=== PATIENT | female | born 1955 | race Caucasian/White ===

== ENCOUNTER 2018-04-09 11:05 | Emergency (ER) | payer BC ==
--- NOTE | 2018-04-09 12:43 | RAD ---
3 VIEW LEFT ANKLE: Date: 04/09/18 INDICATION: Edema. FINDINGS: There is no fracture or dislocation. Mortise is intact. Soft tissue prominence preferentially involve s the lateral aspect of the left ankle. IMPRESSION: 1. Soft tissue prominence of the lateral left ankle. Correlate clinically. 2. No underlying, acute fracture. POS: [facility]
--- NOTE | 2018-04-09 12:45 | RAD ---
3 VIEW LEFT FOOT: Date: 04/09/18 INDICATION: Pain. FINDINGS: There are multiple radiopaque densities overlying the distal left foot with underlying chronic appear ing osseous deformity of the distal second and third metatarsals. This suggests sequelae from prior i njury with retained radiopaque foreign bodies. There is no acute osseous abnormality visualized. Dors al calcaneal enthesophyte is present. IMPRESSION: Chronic appearing post-traumatic deformity of the distal second and third metatarsals with adjacent e mbedded radiopaque foreign bodies to indicate prior penetrating injury. Correlate with history. POS: [facility]
== END 2018-04-09 12:58 | disposition home or self-care (01) ==
LOC: SCSER 11:05
DX: S93.402A Sprain of unspecified ligament of left ankle, initial encounter (principal); S86.312A Strain of muscle(s) and tendon(s) of peroneal muscle group at lower leg level, left leg, initial encounter; I10 Essential (primary) hypertension; E78.00 Pure hypercholesterolemia, unspecified; Z79.899 Other long term (current) drug therapy; W54.1XXA Struck by dog, initial encounter

== ENCOUNTER 2019-02-12 20:16 | Emergency (ER) | payer BC ==
[2019-02-12 21:03] LABS: #Eosinphils 0.2 thou/uL (0.0-0.7); #Lymphocytes 2.9 thou/uL (1.20-3.40); #Monocytes 0.4 thou/uL (0.11-0.59); %Basophils 0.2 % (0.0-1.0); %Eosinophils 2.1 % (0.0-10.0); %Lymphocytes 38.3 % (21.0-51.0); %Monocytes 5.5 % (0.0-10.0); %Neutrophils 53.9 % (42.0-75.0); Mean Corpuscular HGB CONC 35.5 g/dL (32.0-36.0); Mean Corpuscular Hemoglobin 31.5 pg (27.0-31.0); Mean Corpuscular Volume 88.6 fL (78.0-98.0); Platelet Count 268 thou/uL (130-400); RBC Distribution Width 11.9 % (11.5-14.5); Red Blood Cell (RBC) Count 4.45 mill/uL (4.20-5.40); White Blood Cell (WBC) Count 7.5 thou/uL (4.8-10.8)
--- NOTE | 2019-02-12 21:23 | RAD ---
RADIOGRAPH CHEST 1 VIEW: DATE: 02/12/2019 HISTORY: 63-year-old female with hypotension and generalized weakness FINDINGS: The cardiothymic silhouette is normal. There are no focal airspace densities. IMPRESSION: No evidence of bacterial pneumonia.
[2019-02-12 21:24] LABS: ALT (SGPT) 16 U/L (8-55); AST (SGOT) 18 U/L (5-34); Albumin 4.3 g/dL (3.4-4.8); Alkaline Phosphatase 126 U/L (40-150); Anion Gap 16 mmol/L (10-20); BUN (Urea Nitrogen) 28 mg/dL (9.8-20.1); Bilirubin, Total 0.2 mg/dL (0.2-1.2); Calc. Creatinine Clearance 0 mL/min (70-130); Calcium 9.9 mg/dL (7.8-10.44); Carbon Dioxide 19 mmol/L (23-31); Chloride 104 mmol/L (98-107); Estimated GFR-MDRD 37; Globulin 3.1 g/dL (2.4-3.5); Glucose 95 mg/dL (80-115); Potassium 4.3 mmol/L (3.5-5.1); Protein, Total 7.4 g/dL (6.0-8.3); Sodium 135 mmol/L (136-145)
--- NOTE | 2019-02-12 22:23 | CT ---
CT BRAIN NONCONTRAST: DATE: 02/12/2019 HISTORY: Generalized weakness and hypotension in 63-year-old female FINDINGS: There is no evidence of acute intra-axial or extra-axial hemorrhage. There is no midline shift or any other mass effect. There is no extra-axial fluid collection. The ventricles are normal in size and configuration. The tympanomastoid cavities, and the upper portions of the paranasal sinuses included in these images, are grossly clear. Calvarium is intact. IMPRESSION: Normal.
[2019-02-12 23:00] LABS: Bilirubin Small (Negative); Blood, Urine Negative (Negative); Glucose, Urine (Dipstick) Negative (Negative); Leukocyte Small (Negative); Nitrite Negative (Negative); Protein, Urine (Dipstick) 30 mg/dL (Neg-Trace); Urobilinogen 0.2 mg/dL (Less than 2)
[2019-02-12 23:03] LABS: Clarity Turbid (Clear)
[2019-02-12 23:08] LABS: Bacteria/HPF 4+ HPF (None Seen); RBC/HPF 0-3 HPF (0-3)
[2019-02-12] MEDS ORDERED: cefTRIAXone\\ROCEPHIN 1 GM VIAL ONE (23:23)
== END 2019-02-13 00:02 | disposition home or self-care (01) ==
LOC: ERS 20:16
DX: N39.0 Urinary tract infection, site not specified (principal); I95.9 Hypotension, unspecified; I10 Essential (primary) hypertension; E78.00 Pure hypercholesterolemia, unspecified; Z79.899 Other long term (current) drug therapy
CPT/HCPCS: 36416; 70450; 71045; 80053; 81003; 81015; 84484; 85025; 87086; 93005; 96361; 96365; J0696

== ENCOUNTER 2019-02-22 10:22 | Outpatient (CLI) | payer BC ==
--- NOTE | 2019-02-22 11:09 | MMO ---
Right Breast MAMMO Unilat Diag DDI RT+ASTON. CLINICAL HISTORY: Patient is 63 years old and is seen for diagnostic exam. The patient has no family history of breast cancer. The patient has no personal history of cancer. VIEWS: The views performed were: right craniocaudal spot compression with tomosynthesis; right mediolateral oblique spot compression with tomosynthesis; and right mediolateral with tomosynthesis. FILMS COMPARED: The present examination has been compared to prior imaging studies performed at [facility] on 02/02/2019 and 02/22/2019. MAMMOGRAM FINDINGS: There are scattered fibroglandular densities. There is an equal density, oval mass measuring 10 millimeters with circumscribed margins seen in the lower-inner region of the right breast. Sonographic findings suggest fibroadenoma. IMPRESSION: MASS IN THE RIGHT BREAST IS PROBABLY BENIGN. FOLLOW-UP IN 6 MONTHS IS RECOMMENDED. THE RESULTS OF THIS EXAM WERE SENT TO THE PATIENT. ACR BI-RADS Category 3 - Probably benign finding - short interval follow-up suggested. [facility] will notify the patient of the need for additional imaging services. MAMMOGRAPHY NOTE: 1. A negative mammogram report should not delay a biopsy if a dominant of clinically suspicious mass is present. 2. Approximately 10% to 15% of breast cancers are not detected by mammography. 3. Adenosis and dense breasts may obscure an underlying neoplasm. Reported by: HANSA BOWDEN MD Electonically Signed: [id number]
--- NOTE | 2019-02-22 12:56 | ULT ---
LIMITED RIGHT BREAST ULTRASOUND: 02/22/19 PROVIDED CLINICAL HISTORY: Abnormal mammogram. FINDINGS: Limited sonographic interrogation of the right breast was performed in the region of mammographic con cern. An 8 mm oval, wider than tall, smoothly marginated hypoechoic mass without associated shadowing is demonstrated at the 4 o'clock position, and corresponds to the mammogram finding. The sonographic characteristics of this process suggests fibroadenoma, though this is not completely certain. IMPRESSION: BIRADS 3: Probably Benign Finding Initial Short-Interval Follow-Up Suggested Initial short-term follow up 6-month ultrasound examination is recommended. POS: [facility]
== END 2019-02-22 10:23 | disposition home or self-care (01) ==
LOC: BICMAMMO 10:22
PROVIDERS: ATTEND Family Medicine
DX: N63.10 Unspecified lump in the right breast, unspecified quadrant (principal)
CPT/HCPCS: G0279

== ENCOUNTER 2019-04-19 12:56 | Outpatient (CLI) | payer OTHER | END 2019-04-19 12:57 | disposition home or self-care (01) | LOC: DTY/OP 12:56 | PROVIDERS: ATTEND Surgery | DX: E66.01 Morbid (severe) obesity due to excess calories (principal) | CPT/HCPCS: 97802 ==

== ENCOUNTER 2019-05-16 06:18 | Outpatient (CLI) | payer BC ==
[2019-05-16 14:58] LABS: Hemoglobin A1c 5.5 % (4.0-6.0)
[2019-05-16 15:01] LABS: Hemoglobin 13.9 g/dL (12.0-16.0); Mean Corpuscular HGB CONC 34.9 g/dL (32.0-36.0); Mean Corpuscular Hemoglobin 30.7 pg (27.0-31.0); Mean Corpuscular Volume 88.1 fL (78.0-98.0); Mean Platelet Volume 6.4 fL (7.4-10.4); Platelet Count 300 thou/uL (130-400); RBC Distribution Width 11.9 % (11.5-14.5); Red Blood Cell (RBC) Count 4.52 mill/uL (4.20-5.40); White Blood Cell (WBC) Count 8.1 thou/uL (4.8-10.8)
[2019-05-16 15:14] LABS: ALT (SGPT) 24 U/L (8-55); AST (SGOT) 19 U/L (5-34); Albumin 4.5 g/dL (3.4-4.8); Alkaline Phosphatase 115 U/L (40-110); Anion Gap 13 mmol/L (10-20); BUN (Urea Nitrogen) 26 mg/dL (9.8-20.1); Bilirubin, Direct 0.2 mg/dL (0.1-0.3); Bilirubin, Total 0.4 mg/dL (0.2-1.2); Calc. Creatinine Clearance 0 mL/min (70-130); Calcium 9.4 mg/dL (7.8-10.44); Carbon Dioxide 24 mmol/L (23-31); Chloride 103 mmol/L (98-107); Estimated GFR-MDRD 51; Globulin 2.9 g/dL (2.4-3.5); Glucose 87 mg/dL (80-115); Potassium 4.5 mmol/L (3.5-5.1); Protein, Total 7.4 g/dL (6.0-8.3); Sodium 135 mmol/L (136-145)
[2019-05-16 16:22] LABS: Band 7 % (5-11); Eosinophils 2 % (0-10); Lymphocytes 25 % (21-51); MDiff Complete? YES; Monocytes 5 % (0-10); Neutrophil 54 % (42-75); Platelet Morphology Comment Appears Adequate; RBC Morphology Normal; Reactive Lymphocytes 6 % (0-10)
--- NOTE | 2019-05-16 22:50 | RAD ---
EXAM: Chest 2 views: HISTORY: Preoperative for surgical evaluation COMPARISON: 02/12/2019 FINDINGS: Heart size:Within normal limits. Lungs:Clear of acute process. Atherosclerotic changes of the aorta. No confluent pneumonia, overt edema, pleural effusion, pneumothorax, or other significant acute proce ss. IMPRESSION: Atherosclerosis of the aorta. No acute intrathoracic disease.
== END 2019-05-16 06:19 | disposition home or self-care (01) ==
LOC: LABBT 06:18
PROVIDERS: ATTEND Surgery
DX: Z01.818 Encounter for other preprocedural examination (principal); E66.01 Morbid (severe) obesity due to excess calories; I70.0 Atherosclerosis of aorta
CPT/HCPCS: 71046; 80053; 80076; 83036; 85007; 85027; 93005; 93010

== ENCOUNTER 2019-05-16 17:00 | Inpatient (IN) | payer BC, MEDICARE ==
[2019-05-29] MEDS ORDERED: Heparin 5,000 UNITS/ML VIAL ONE (10:02)
[2019-05-29] MEDS ORDERED: Bupivacaine PF 0.5% 30 ML VIAL ONE (10:10)
[2019-05-29] MEDS ORDERED: Promethazine HCl 25 MG/ML VIAL IM PRN ×3 (10:48→14:26)
[2019-05-29] MEDS ORDERED: Ondansetron HCl/PF 4 MG/2 ML Vial IVP PRN ×2 (10:48→13:17)
[2019-05-29] MEDS ORDERED: Promethazine HCl 25 MG/ML VIAL SLOW IVP PRN ×2 (10:48→13:17)
[2019-05-29] MEDS ORDERED: Fentanyl 100 MCG/2 ML VIAL ONE ×3 (11:18→14:38)
[2019-05-29] MEDS ORDERED: Midazolam HCl 2 mg/2 ml Vial ONE ×2 (11:18→11:19)
[2019-05-29] MEDS ORDERED: Dextrose 50% Abboject 50 ML SYRINGE SLOW IVP PRN (13:40)
[2019-05-29] MEDS ORDERED: hydrALAZINE 20 MG/ML VIAL SLOW IVP PRN (13:40)
[2019-05-29] MEDS ORDERED: Insulin Regular 300 UNITS/3 ML VIAL SC PRN (13:40)
[2019-05-29] MEDS ORDERED: diphenhydrAMINE 50 MG/ML VIAL IVP PRN ×2 (13:40→14:26)
[2019-05-29] MEDS ORDERED: Ondansetron PF 4 MG/2 ML Vial IVP PRN ×2 (13:40→14:26)
[2019-05-29] MEDS ORDERED: Dextrose 5% in Water 1,000 ML IV PRN (13:40)
[2019-05-29] MEDS ORDERED: Hydrocodone-Acetamin 15 ML UDCUP PO PRN (13:40)
[2019-05-29] MEDS ORDERED: Sodium Chloride 0.9% 1,000 ML IV SCH (13:45)
[2019-05-29] MEDS ORDERED: Zolpidem Tartrate 5 MG TAB PO PRN (14:26)
[2019-05-29] MEDS ORDERED: fentaNYL Citrate/PF 2,000 MCG in Sodium Chloride 0.9% 60 ML IV PRN (14:26)
[2019-05-29] MEDS ORDERED: Naloxone HCl 0.4 mg/ml Vial IV PRN (14:26)
[2019-05-29] MEDS ORDERED: diphenhydrAMINE 50 MG/ML VIAL IM PRN (14:26)
[2019-05-29] MEDS ORDERED: diphenhydrAMINE 25 MG CAP PO PRN (14:26)
[2019-05-29] MEDS ORDERED: Communication Order-Pharmacy FS SCH (14:30)
[2019-05-29] MEDS ORDERED: Rocuronium Bromide 10 MG/ML (10ML VIAL) ONE (14:49)
[2019-05-29] MEDS ORDERED: PROPOFOL 200 MG/20 ML VIAL ONE (14:49)
[2019-05-29] MEDS ORDERED: Dexamethasone 20 MG/5 ML VIAL ONE (14:49)
[2019-05-29] MEDS ORDERED: Lidocaine 1% PF 5 ML VIAL ONE (14:49)
[2019-05-29] MEDS ORDERED: Glycopyrrolate 0.2 MG/ML 5 ML SYRINGE ONE (14:49)
[2019-05-29] MEDS ORDERED: Ketorolac Tromethamine 30 MG/ML VIAL ONE (14:49)
[2019-05-29] MEDS ORDERED: Ondansetron PF 4 MG/2 ML Vial ONE (14:49)
[2019-05-29] MEDS ORDERED: hydrALAZINE 20 MG/ML VIAL ONE (15:55)
--- NOTE | 2019-05-29 17:03 | OP ---
DATE OF PROCEDURE: 05/29/2019 PREOPERATIVE DIAGNOSES: 1. Morbid obesity with a body mass index of 38. 2. Hypertension. POSTOPERATIVE DIAGNOSES: 1. Morbid obesity with a body mass index of 38. 2. Hypertension. 3. Hiatal hernia. PROCEDURES PERFORMED: 1. Laparoscopic sleeve gastrectomy with [place] staple line reinforcements and 38-[place] bougie. 2. Hiatal hernia repair without fundoplication. 3. Esophagogastroduodenoscopy. ANESTHESIA: General. ESTIMATED BLOOD LOSS: Minimal. COMPLICATIONS: None. SPECIMENS: Stomach. FINDINGS: Normal postoperative EGD. DESCRIPTION OF PROCEDURE: The patient was taken to the operating room, placed supine on the table. After general anesthetic was obtained, bilateral arms and legs were double strapped to bariatric table. OG tube was used to decompress the stomach. Left subcostal 5 mm Optiview trocar was placed in usual fashion. High-flow pneumoperitoneum obtained. Left and right abdominal 12 mm ports as well as a right subcostal 5 mm port were all placed under direct visualization. A 5 mm incision was made at the xiphoid and Lakisha was used to raise the liver off the GE junction. Short gastrics were taken down from mid body of stomach to left clemente of diaphragm. Left clemente, angle of His, and posterior fundus were completely dissected revealing a hiatal hernia. Short gastrics were taken down to a distance of 6 cm proximal to the pylorus. The gastrohepatic ligament was entered. The right crura of the diaphragm were dissected and the mediastinum was entered. A circumferential dissection of the esophagus was performed, bringing the GE junction back down into the abdominal cavity. A 38 bougie was brought in, its tip left in the antrum of the stomach. Multiple loads of the [place] stapling device were used to perform the sleeve. The first was fired up at a distance of 6 cm proximal to the pylorus, angled up towards the incisura. Multiple loads then fired up along the bougie. Stomach was completely transected at the angle of His. Care was taken to avoid being too close at the end of incisura. Two Ethibond sutures and a tie knot system were used to close the diaphragmatic defect posteriorly. The stomach was removed from the left abdominal incision. This fascial defect was closed using GraNee needle 0 Vicryl tie. A 30 mL of half Marcaine plain was used to infiltrate the incisions. EGD scope was passed through esophagus, stomach, and to the level of duodenum without obstruction. There was no stricture at the incisura. No evidence of stenosis at the GE junction or at the diaphragmatic hiatus. EGD scope was pulled and the stomach was decompressed and EGD scope was removed. Lakisha removed under direct visualization without bleeding. Pneumoperitoneum was let down. Vicryl was used to close the fascial defect from the left abdominal incisions. All incisions were irrigated and closed using 4-0 Monocryl and Dermabond. The patient was en route to Recovery in stable condition. All instrument counts, needle counts, and lap counts were correct. Job ID: [id number]
[2019-05-29 17:25] VITALS: BMI 35.3
[2019-05-29] MEDS: Acetaminophen 1,000 MG in Premix Bag 1 BAG IVPB SCH ×2 (18:03→23:35)
[2019-05-29] MEDS ORDERED: Enoxaparin Sodium 40 MG/0.4 ML SYRINGE SC SCH (21:00)
[2019-05-29] MEDS ORDERED: Gabapentin 300 MG CAP PO SCH (21:00)
[2019-05-29] MEDS ORDERED: traZODone HCl 50 MG TAB PO SCH (21:00)
[2019-05-29] MEDS: Promethazine HCl 25 MG/ML VIAL IM PRN (21:24)
[2019-05-29] MEDS: D5 1/2 NS w/20 mEq KCL 1,000 ML IV SCH (21:26)
[2019-05-29] MEDS: Metoprolol Tartrate 50 MG TAB PO SCH (21:27)
[2019-05-29] MEDS: Gabapentin 300 MG CAP PO SCH ×2 (21:27→22:07)
[2019-05-30] MEDS: Promethazine HCl 25 MG/ML VIAL IM PRN ×2 (00:10→04:16)
[2019-05-30] MEDS: Acetaminophen 1,000 MG in Premix Bag 1 BAG IVPB SCH ×2 (05:27→12:48)
[2019-05-30] MEDS: D5 1/2 NS w/20 mEq KCL 1,000 ML IV SCH (05:27)
[2019-05-30] MEDS: Metoprolol Tartrate 50 MG TAB PO SCH (08:33)
[2019-05-30] MEDS: Gabapentin 300 MG CAP PO SCH (08:33)
[2019-05-30] MEDS ORDERED: Amlodipine 10 MG TAB PO SCH (09:00)
[2019-05-30] MEDS ORDERED: LURASIDONE 40 MG PO SCH (09:00)
[2019-05-30] MEDS ORDERED: Lisinopril 20 MG TAB PO SCH (09:00)
[2019-05-30] MEDS ORDERED: Pantoprazole 40 MG VIAL IVP SCH (09:00)
[2019-05-30] MEDS ORDERED: Venlafaxine HCl XR 150 MG CAP PO SCH (09:00)
[2019-05-30] MEDS ORDERED: Hydrocodone-Acetamin 15 ML UDCUP PO PRN (10:10)
[2019-05-30 10:47] LABS: #Lymphocytes 2.4 thou/uL (1.20-3.40); #Monocytes 0.6 thou/uL (0.11-0.59); #Neutrophils 7.4 thou/uL (1.40-6.50); %Basophils 0.1 % (0.0-1.0); %Eosinophils 0.3 % (0.0-10.0); %Lymphocytes 22.9 % (21.0-51.0); %Monocytes 5.3 % (0.0-10.0); %Neutrophils 71.4 % (42.0-75.0); Hemoglobin 13.6 g/dL (12.0-16.0); Mean Corpuscular HGB CONC 33.6 g/dL (32.0-36.0); Mean Corpuscular Hemoglobin 29.9 pg (27.0-31.0); Mean Corpuscular Volume 89.1 fL (78.0-98.0); Mean Platelet Volume 7.1 fL (7.4-10.4); Platelet Count 312 thou/uL (130-400); RBC Distribution Width 12.1 % (11.5-14.5); Red Blood Cell (RBC) Count 4.56 mill/uL (4.20-5.40); White Blood Cell (WBC) Count 10.4 thou/uL (4.8-10.8)
[2019-05-30 10:56] LABS: Anion Gap 13 mmol/L (10-20); BUN (Urea Nitrogen) 9 mg/dL (9.8-20.1); Calc. Creatinine Clearance 88 mL/min (70-130); Carbon Dioxide 26 mmol/L (23-31); Chloride 102 mmol/L (98-107); Estimated GFR-MDRD 54; Glucose 113 mg/dL (80-115); Potassium 3.5 mmol/L (3.5-5.1); Sodium 137 mmol/L (136-145)
[2019-05-30 11:23] VITALS: BP 149/86; TEMP 98.5
--- NOTE | 2019-06-01 05:51 | PQF ---
[facility] Managed Care Provider Crystal Reports Winform LOUISA Baugh BEL CARRILLO MD [id number] [facility] A- [id number] CLINICAL DOCUMENTATION CLARIFICATION FORM: POST DISCHARGE Addendum to original discharge summary date: ____ Late entry note date: __ DATE: 06/01/2019 ATTN:BEL ERVIN MD Please exercise your independent, professional judgment in responding to the clarification form. Clinical indicators are provided on the bottom of this form for your review Please check appropriate box(s): Kindly provide clinical significance of cardiomyopathy [ ] Cardiomyopathy was clinically significant [ x ] Cardiomyopathy was not clinically significant [ ] Other diagnosis [ ] Unable to determine In addition, please specify: Present on Admission (POA): [ ] Yes [ ] No [ ] Unable to determine For continuity of documentation, please document condition throughout progress notes and discharge summary. Thank You. CLINICAL INDICATORS - SIGNS / SYMPTOMS / LABS Cardiomyopathy diastolic dysfunction on ECHO EF 55-60% MR TR - Documented in [facility] Pre op report pg#2 HTN RISK FACTORS Morbid obesity Hiatal Hernia TREATMENTS: Laparoscopic Sleeve gastrectomy has done (This form is maintained as a part of the permanent medical record) 2014 [employer]. All Rights Reserved Harini [email or web address] [not provided] MTDD
== END 2019-05-30 13:50 | disposition home or self-care (01) | DRG 621 ==
LOC: SURG A 05-29 09:25
PROVIDERS: ADMIT Surgery; ATTEND Surgery
PROC: 0DB64Z3 Excision of Stomach, Percutaneous Endoscopic Approach, Vertical (ICD-10-PCS; principal; 2019-05-29)
PROC: 0BQT4ZZ Repair Diaphragm, Percutaneous Endoscopic Approach (ICD-10-PCS; 2019-05-29)
PROC: 0DJ08ZZ Inspection of Upper Intestinal Tract, Via Natural or Artificial Opening Endoscopic (ICD-10-PCS; 2019-05-29)
DX: E66.01 Morbid (severe) obesity due to excess calories (principal); I10 Essential (primary) hypertension; E78.5 Hyperlipidemia, unspecified; G43.909 Migraine, unspecified, not intractable, without status migrainosus; F32.9 Major depressive disorder, single episode, unspecified; F41.9 Anxiety disorder, unspecified; Z68.35 Body mass index [BMI] 35.0-35.9, adult; Z90.710 Acquired absence of both cervix and uterus; Z90.49 Acquired absence of other specified parts of digestive tract; Z87.891 Personal history of nicotine dependence; K44.9 Diaphragmatic hernia without obstruction or gangrene
CPT/HCPCS: 36415; 80048; 85025; 88307; 88312; C9113; J0131; J0360; J0690; J1100; J1644; J1650; J1885; J2001; J2250; J2405; J2550; J2704; J3010; S0020

== ENCOUNTER 2019-06-08 13:01 | Observation (INO) | payer BC, MEDICARE ==
[2019-06-08] MEDS ORDERED: Iopamidol-370 76% 500 ML 1 ML ONE (13:27)
[2019-06-08] MEDS ORDERED: Ondansetron PF 4 MG/2 ML Vial ONE ×2 (14:12→15:34)
[2019-06-08 14:47] LABS: #Lymphocytes 1.1 thou/uL (1.20-3.40); #Monocytes 0.3 thou/uL (0.11-0.59); #Neutrophils 5.1 thou/uL (1.40-6.50); %Basophils 0.6 % (0.0-1.0); %Eosinophils 0.6 % (0.0-10.0); %Lymphocytes 16.2 % (21.0-51.0); %Monocytes 4.7 % (0.0-10.0); %Neutrophils 77.9 % (42.0-75.0); Mean Corpuscular HGB CONC 34.6 g/dL (32.0-36.0); Mean Corpuscular Hemoglobin 30.7 pg (27.0-31.0); Mean Corpuscular Volume 88.6 fL (78.0-98.0); Mean Platelet Volume 6.6 fL (7.4-10.4); Platelet Count 317 thou/uL (130-400); RBC Distribution Width 11.8 % (11.5-14.5); Red Blood Cell (RBC) Count 4.23 mill/uL (4.20-5.40); White Blood Cell (WBC) Count 6.5 thou/uL (4.8-10.8)
[2019-06-08 15:17] LABS: ALT (SGPT) 37 U/L (8-55); AST (SGOT) 27 U/L (5-34); Albumin 4.5 g/dL (3.4-4.8); Alkaline Phosphatase 116 U/L (40-110); Anion Gap 15 mmol/L (10-20); BUN (Urea Nitrogen) 10 mg/dL (9.8-20.1); Bilirubin, Total 0.6 mg/dL (0.2-1.2); Calc. Creatinine Clearance 0 mL/min (70-130); Calcium 9.8 mg/dL (7.8-10.44); Carbon Dioxide 28 mmol/L (23-31); Chloride 101 mmol/L (98-107); Estimated GFR-MDRD 49; Globulin 3.3 g/dL (2.4-3.5); Glucose 114 mg/dL (80-115); Potassium 3.8 mmol/L (3.5-5.1); Protein, Total 7.8 g/dL (6.0-8.3); Sodium 140 mmol/L (136-145)
[2019-06-08] MEDS ORDERED: Fentanyl 100 MCG/2 ML VIAL ONE (15:44)
[2019-06-08] MEDS ORDERED: Promethazine HCl 25 MG/ML VIAL ONE (16:10)
[2019-06-08 16:11] LABS: Bilirubin Negative (Negative); Blood, Urine Negative (Negative); Clarity Clear (Clear); Glucose, Urine (Dipstick) Normal (Negative); Leukocyte Negative Leu/uL (Negative); Nitrite Negative (Negative); Protein, Urine (Dipstick) 20 mg/dL (Neg-Trace); Urobilinogen Normal mg/dL (Less than 2)
--- NOTE | 2019-06-08 17:06 | CT ---
CT ABDOMEN AND PELVIS WITH IV CONTRAST: 06/08/19 HISTORY: Abdominal pain. Recent gastric sleeve surgery on 05/29/19. FINDINGS: There are mild dependent changes in the left lung base. The patient is post gastric sleeve surgery, cholecystectomy and hysterectomy. The intra and extrahepatic biliary ducts are dilated with the commo n bile duct measuring about 1 cm. No hepatic mass is seen. The spleen, pancreas, left adrenal gland a nd right kidney are normal. There is an 8 mm cyst arising from the superior pole of the left kidney. No free air, free fluid or lymphadenopathy is seen in the abdomen or pelvis. The small bowel loops a re not abnormally dilated. The appendix is normal. There is a 15 mm right adrenal nodule which has not been calculated for adenoma. There are vascular calcifications without evidence of aneurysmal dilatation of the abdominal aorta. T here are degenerative changes in the spine. There is induration of the anterior abdominal fat likely due to recent surgery. IMPRESSION: 1. No acute process. 2. Status post cholecystectomy with biliary ductal dilatation likely due to reservoir effect. 3. Indeterminate 15 mm right adrenal nodule. A CT scan with and without IV contrast using the ad renal protocol would be helpful for further characterization. POS: [facility]
--- NOTE | 2019-06-08 17:22 | HP ---
HISTORY OF PRESENT ILLNESS: This is a 64-year-old female, who is 10 days status post gastric sleeve, who presents with a history of nausea, vomiting, and feeling tired. She also noted some chest pain. Seen in the emergency department, where CT scan shows no obvious leak. She feels better with some IV fluids. MEDICAL HISTORY: Includes hypertension. SURGICAL HISTORY: Includes; 1. Cholecystectomy. 2. Hysterectomy. 3. Bladder surgery. 4. Lap sleeve. MEDICATIONS: See list. ALLERGIES: NO KNOWN DRUG ALLERGIES. SOCIAL HISTORY: No smoking, alcohol, or other drugs. REVIEW OF SYSTEMS: Ten-system review of systems is otherwise negative other than described above. PHYSICAL EXAMINATION: HEENT: Sclerae anicteric. Oropharynx clear. NECK: No lymphadenopathy. CHEST: Clear. HEART: Regular rate and rhythm. ABDOMEN: Soft. Wounds are healing well with some bruising, but no infection. EXTREMITIES: No ischemia or edema to extremities. IMAGING STUDIES: CT scan as above. LABORATORY DATA: White blood cell count is 6.5, hemoglobin 13, and platelet count is 317. Sodium 140, potassium 3.8, and creatinine is 1.12. She has ketones in her urine. ASSESSMENT: Nausea, vomiting, and dehydration status post gastric sleeve. PLAN: Admit to observation. IV fluids. Likely, we will probably discharge tomorrow. Job ID: [id number]
[2019-06-08] MEDS ORDERED: Dextrose 50% Abboject 50 ML SYRINGE SLOW IVP PRN (18:45)
[2019-06-08] MEDS ORDERED: Ondansetron PF 4 MG/2 ML Vial IVP PRN (18:45)
[2019-06-08] MEDS ORDERED: hydrALAZINE 20 MG/ML VIAL SLOW IVP PRN (18:45)
[2019-06-08] MEDS ORDERED: diphenhydrAMINE 50 MG/ML VIAL IVP PRN (18:45)
[2019-06-08] MEDS ORDERED: Hydrocodone-Acetamin 15 ML UDCUP PO PRN (18:45)
[2019-06-08] MEDS ORDERED: Acetaminophen 1,000 MG in Premix Bag 1 BAG IVPB PRN (18:45)
[2019-06-08] MEDS ORDERED: Morphine 4 MG/ML VIAL SLOW IVP PRN (18:45)
[2019-06-08] MEDS ORDERED: Dextrose 5% in Water 1,000 ML IV PRN (18:45)
[2019-06-08] MEDS ORDERED: Morphine 2 MG/ML SYRINGE SLOW IVP PRN (18:45)
[2019-06-08] MEDS: Metoprolol Tartrate 50 MG TAB PO SCH (21:12)
[2019-06-08] MEDS: D5 1/2 NS w/20 mEq KCL 1,000 ML IV SCH (21:13)
[2019-06-09] MEDS: D5 1/2 NS w/20 mEq KCL 1,000 ML IV SCH ×2 (05:00→16:07)
[2019-06-09 05:45] LABS: #Basophils 0.1 thou/uL (0.0-0.2); #Eosinphils 0.2 thou/uL (0.0-0.7); #Lymphocytes 1.7 thou/uL (1.20-3.40); #Monocytes 0.4 thou/uL (0.11-0.59); #Neutrophils 3.5 thou/uL (1.40-6.50); %Basophils 0.9 % (0.0-1.0); %Eosinophils 2.7 % (0.0-10.0); %Lymphocytes 29.3 % (21.0-51.0); %Monocytes 6.4 % (0.0-10.0); %Neutrophils 60.7 % (42.0-75.0); Hemoglobin 11.1 g/dL (12.0-16.0); Mean Corpuscular HGB CONC 33.7 g/dL (32.0-36.0); Mean Corpuscular Hemoglobin 30.5 pg (27.0-31.0); Mean Corpuscular Volume 90.6 fL (78.0-98.0); Mean Platelet Volume 7.1 fL (7.4-10.4); Platelet Count 282 thou/uL (130-400); RBC Distribution Width 11.9 % (11.5-14.5); Red Blood Cell (RBC) Count 3.62 mill/uL (4.20-5.40); White Blood Cell (WBC) Count 5.8 thou/uL (4.8-10.8)
[2019-06-09 06:02] LABS: Anion Gap 11 mmol/L (10-20); BUN (Urea Nitrogen) 9 mg/dL (9.8-20.1); Calc. Creatinine Clearance 98 mL/min (70-130); Calcium 8.4 mg/dL (7.8-10.44); Carbon Dioxide 24 mmol/L (23-31); Chloride 107 mmol/L (98-107); Estimated GFR-MDRD 60; Glucose 135 mg/dL (80-115); Potassium 3.8 mmol/L (3.5-5.1); Sodium 138 mmol/L (136-145)
[2019-06-09] MEDS: Promethazine HCl 25 MG/ML VIAL IM PRN ×2 (08:26→11:40)
[2019-06-09] MEDS: Metoprolol Tartrate 50 MG TAB PO SCH (08:36)
[2019-06-09] MEDS ORDERED: Pantoprazole 40 MG VIAL IVP SCH (09:00)
--- NOTE | 2019-06-09 11:25 | DIS ---
DATE OF ADMISSION: 06/08/2019 DATE OF DISCHARGE: 06/09/2019 ADMITTING DIAGNOSES: Nausea, vomiting, dehydration. DISCHARGE DIAGNOSES: Nausea, vomiting, dehydration. PROCEDURE: None. CONDITION ON DISCHARGE: Improved. STAFF: Jaime Berman MD HOSPITAL COURSE: The patient was admitted with intractable vomiting, status post gastric sleeve. Her CT scan of her abdomen revealed no obvious complication from surgery. She was hydrated overnight. She feels slightly improved today. She has persistent nausea, but the Phenergan suppositories help. She is to be discharged home. Prescription for Phenergan suppositories will be sent over to her pharmacy. She will follow up with me in a week. Job ID: [id number]
[2019-06-09 12:17] VITALS: BP 137/77; TEMP 97.5
== END 2019-06-09 13:35 | disposition home or self-care (01) ==
LOC: ERS 13:01 → SURG B 16:22
PROVIDERS: ADMIT Surgery; ATTEND Surgery
DX: E86.0 Dehydration (principal); R07.9 Chest pain, unspecified; I10 Essential (primary) hypertension; E78.00 Pure hypercholesterolemia, unspecified; F41.9 Anxiety disorder, unspecified; F32.9 Major depressive disorder, single episode, unspecified; Z79.899 Other long term (current) drug therapy; Z98.84 Bariatric surgery status
CPT/HCPCS: 36415; 74177; 80048; 80053; 81003; 83690; 85025; 86850; 86900; 86901; 94760; 96361; 96372; 96374; 96375; 96376; C9113; G0378; J2405; J2550; J3010; Q9967

== ENCOUNTER 2019-07-08 10:40 | Emergency (ER) | payer BC, MEDICARE ==
[2019-07-08 11:26] LABS: #Eosinphils 0.1 thou/uL (0.0-0.7); #Lymphocytes 1.8 thou/uL (1.20-3.40); #Monocytes 0.3 thou/uL (0.11-0.59); %Basophils 0.7 % (0.0-1.0); %Eosinophils 1.5 % (0.0-10.0); %Lymphocytes 29.1 % (21.0-51.0); %Monocytes 5.1 % (0.0-10.0); %Neutrophils 63.5 % (42.0-75.0); Hemoglobin 13.7 g/dL (12.0-16.0); Mean Corpuscular HGB CONC 34.5 g/dL (32.0-36.0); Mean Corpuscular Hemoglobin 30.2 pg (27.0-31.0); Mean Corpuscular Volume 87.5 fL (78.0-98.0); Platelet Count 231 thou/uL (130-400); RBC Distribution Width 12.3 % (11.5-14.5); Red Blood Cell (RBC) Count 4.53 mill/uL (4.20-5.40); White Blood Cell (WBC) Count 6.2 thou/uL (4.8-10.8)
[2019-07-08] MEDS ORDERED: Iopamidol-370 76% 500 ML 1 ML ONE (11:26)
[2019-07-08 11:47] LABS: ALT (SGPT) 59 U/L (8-55); AST (SGOT) 33 U/L (5-34); Albumin 4.5 g/dL (3.4-4.8); Alkaline Phosphatase 107 U/L (40-110); Anion Gap 16 mmol/L (10-20); BUN (Urea Nitrogen) 22 mg/dL (9.8-20.1); Bilirubin, Total 0.5 mg/dL (0.2-1.2); Calc. Creatinine Clearance 0 mL/min (70-130); Calcium 9.5 mg/dL (7.8-10.44); Carbon Dioxide 20 mmol/L (23-31); Chloride 108 mmol/L (98-107); Estimated GFR-MDRD 39; Globulin 3.1 g/dL (2.4-3.5); Glucose 96 mg/dL (80-115); Potassium 3.6 mmol/L (3.5-5.1); Protein, Total 7.6 g/dL (6.0-8.3); Sodium 140 mmol/L (136-145)
--- NOTE | 2019-07-08 12:36 | CT ---
CT Abdomen Pelvis W Con History: Abdominal pain Comparison: CT abdomen and pelvis May 2019 Findings: Lung bases are clear. No pericardial effusion. Prior gastric sleeve surgery. Contrast is seen in the stomach and proximal duodenum does not extend b eyond the third portion of the duodenum. The stomach is subsequent spot significantly dilated. There is contrast throughout the esophagus. Mild reservoir effect of the intrahepatic biliary system. Prior cholecystectomy. Low-grade focal fusiform ectasia infrarenal abdominal aorta measures 2 cm size for a length of 1 cm. Mild atherosclerotic plaque. No dilated loops of large or small bowel. The appendix is visualized and is normal. 2 small foci of s car along the anterior abdominal wall. No hydronephrosis. No retroperitoneal periaortic adenopathy. Moderate facet arthropathy lumbar spine. Superior endplate compression deformity at L3 is similar. Impression: 1. Evidence of prior gastric surgery surgery with contrast utilizing through the esophagus as well as the stomach proximal small bowel without extension beyond the third portion duodenum. Esophageal contrast to be sequelae of reflux. No significant dilatation of the stomach or duodenum. 2. Small mass medial limb right adrenal gland is similar. This is likely an adenoma. 3. Mild focal ectasia infrarenal abdominal aorta, unchanged from the comparison examination without a neurysmal dilatation. 4. Given the lack of contrast within the small bowel, evaluation with timing between the oral adminis tration of contrast and the scan is recommended. If this is greater than 30 minutes, nonvisualized intraluminal third portion duodenal obstruction versus lack of normal duodenal motility would be expe cted 5. Small right adrenal adenoma
== END 2019-07-08 15:55 | disposition home or self-care (01) ==
LOC: ERS 10:40
DX: R10.13 Epigastric pain (principal); I10 Essential (primary) hypertension; E78.00 Pure hypercholesterolemia, unspecified; F32.9 Major depressive disorder, single episode, unspecified; F41.9 Anxiety disorder, unspecified; Z79.899 Other long term (current) drug therapy
CPT/HCPCS: 36415; 74177; 80053; 83605; 83690; 85025; 96360; 96361; Q9967

== ENCOUNTER 2020-07-16 16:04 | Outpatient (CLI) | payer BC ==
--- NOTE | 2020-07-16 16:27 | RAD ---
Left foot 3 views HISTORY: Left foot injury. COMPARISON: 04/09/2018. FINDINGS: Multiple small metallic fragments within the soft tissues and embedded within and around th e second and third metatarsal max are unchanged from the prior exam. Callus formation from fractures at the second and third metatarsal necks also stable. Osteochondroma projecting medially fr om the first metatarsal head is stable. Lisfranc joint alignment is anatomic. Mild pes planus on the lateral view. No acute fracture or dislocation. No new radiopaque foreign bodies. IMPRESSION : Embedded metallic foreign bodies, old traumatic changes, and other findings are stable.
== END 2020-07-16 16:05 | disposition home or self-care (01) ==
LOC: BICRAD 16:04
PROVIDERS: ATTEND Family Medicine
DX: M79.672 Pain in left foot (principal); S90.852A Superficial foreign body, left foot, initial encounter; L84 Corns and callosities

== ENCOUNTER 2020-08-24 14:26 | Emergency (ER) | payer BC ==
[~2020-08-24 14:26] MED LIST: Iopamidol-370 76% 500 ML 1 ML ONE
[2020-08-24] MEDS ORDERED: Ondansetron PF 4 MG/2 ML Vial ONE (16:57)
[2020-08-24 17:10] LABS: #Eosinphils 0.1 thou/uL (0.0-0.7); #Lymphocytes 1.3 thou/uL (1.20-3.40); #Monocytes 0.5 thou/uL (0.11-0.59); #Neutrophils 6.7 thou/uL (1.40-6.50); %Basophils 0.2 % (0.0-1.0); %Eosinophils 1.7 % (0.0-10.0); %Lymphocytes 14.6 % (21.0-51.0); %Monocytes 6.3 % (0.0-10.0); %Neutrophils 77.3 % (42.0-75.0); Hemoglobin 12.2 g/dL (12.0-16.0); Mean Corpuscular HGB CONC 33.7 g/dL (32.0-36.0); Mean Corpuscular Hemoglobin 28.5 pg (27.0-31.0); Mean Corpuscular Volume 84.4 fL (78.0-98.0); Mean Platelet Volume 6.8 fL (7.4-10.4); Platelet Count 324 thou/uL (130-400); RBC Distribution Width 12.4 % (11.5-14.5); Red Blood Cell (RBC) Count 4.28 mill/uL (4.20-5.40); White Blood Cell (WBC) Count 8.6 thou/uL (4.8-10.8)
[2020-08-24 17:33] LABS: ALT (SGPT) 109 U/L (8-55); AST (SGOT) 36 U/L (5-34); Albumin 4.2 g/dL (3.4-4.8); Alkaline Phosphatase 547 U/L (40-110); Anion Gap 18 mmol/L (10-20); BUN (Urea Nitrogen) 9 mg/dL (9.8-20.1); Calc. Creatinine Clearance 0 mL/min (70-130); Carbon Dioxide 19 mmol/L (23-31); Chloride 105 mmol/L (98-107); Globulin 2.8 g/dL (2.4-3.5); Glucose 93 mg/dL (80-115); Lipase 43 U/L (8-78); Potassium 3.5 mmol/L (3.5-5.1); Sodium 138 mmol/L (136-145)
--- NOTE | 2020-08-24 18:46 | CT ---
EXAM: CT ABDOMEN AND PELVIS HISTORY: Vomiting and nausea COMPARISON: 07/08/2019 Procedure: Multiple contiguous axial images were obtained and a CT of the abdomen and pelvis with IV contrast. C oronal reformats were performed. FINDINGS: Lower Chest: There are groundglass opacities involving the left lower lobe suggesting atypical pneumo jimmie. Video Editing Intern opacity measures 1 cm. Vessels: Normal caliber aorta. No periaortic fat stranding Heart: Normal heart size. No significant pericardial fluid Abdomen: Portal vein:Patent Gallbladder: Surgically absent. Associated dilatation of the intrahepatic and extra hepatic biliary s ystem Liver: within normal limits. Pancreas: within normal limits. Spleen: within normal limits. Adrenals: Nodule involving the medial limb of the right adrenal gland measures 1.6 cm, previously ree suring 1.2 cm. Nodule was demonstrated to be an adenoma and 06/13/2017 Kidneys: Symmetric enhancement. No obstructive uropathy. Peritoneum: No ascites or free air, no fluid collection. Bowel: There is evidence of previous bariatric surgical change. Small hiatal hernia. No evidence of a small bowel obstruction. Normal ileocecal junction. Normal caliber appendix. Colon is decompressed. Mesentery and Retroperitoneum: No enlarged mesenteric or retroperitoneal lymph nodes. Abdominal Wall: within normal limits. Pelvis: Reproductive Organs: Uterus is surgically absent Pelvis: No mass, lymphadenopathy, free air or free fluid. Bladder: within normal limits. Bones: within normal limits. IMPRESSION: 1 No evidence of acute intraabdominal\pelvic abnormality. 2. Groundglass opacities in the left lower lobe likely representing atypical infection. Follow-up silver ging to ensure resolution is recommended. Video Editing Intern opacity as described above.
[2020-08-24 20:27] LABS: Bilirubin Negative (Negative); Blood, Urine Negative (Negative); Clarity Clear (Clear); Glucose, Urine (Dipstick) Normal (Negative); Ketone, Urine Negative (Negative); Leukocyte Negative Leu/uL (Negative); Nitrite Negative (Negative); Protein, Urine (Dipstick) 20 mg/dL (Neg-Trace); Specific Gravity, Urine 1.048 (1.002-1.036); Urobilinogen Normal mg/dL (Less than 2)
[2020-08-24] MEDS ORDERED: Promethazine HCl 25 MG/ML VIAL ONE (20:40)
== END 2020-08-24 20:49 | disposition home or self-care (01) ==
LOC: ERS 14:26
DX: R11.2 Nausea with vomiting, unspecified (principal); R19.7 Diarrhea, unspecified; R74.8 Abnormal levels of other serum enzymes; I10 Essential (primary) hypertension; E78.00 Pure hypercholesterolemia, unspecified; Z79.899 Other long term (current) drug therapy
CPT/HCPCS: 36415; 74177; 80053; 81003; 83690; 83735; 84484; 85025; 93005; 96374; 96375; J2405; J2550; Q9967

== ENCOUNTER 2020-12-18 11:44 | Outpatient (CLI) | payer BC | END 2020-12-18 11:45 | disposition home or self-care (01) | LOC: BICRAD 11:44 | PROVIDERS: ATTEND Family Medicine | DX: M25.531 Pain in right wrist (principal); M79.641 Pain in right hand ==

== ENCOUNTER 2021-03-04 07:44 | Day surgery (SDC) | payer BC ==
[2021-02-27 11:50] VITALS: BMI 35.6
[2021-03-04] MEDS ORDERED: Bupivacaine PF 0.5% 30 ML VIAL ONE (11:25)
[2021-03-04] MEDS ORDERED: Bacitracin Zinc Ointment 30 gm TUBE ONE (11:25)
[2021-03-04] MEDS ORDERED: Neomycin-Polymyxin 1 ML AMP ONE (11:25)
[2021-03-04] MEDS ORDERED: Fentanyl 100 MCG/2 ML VIAL ONE ×2 (11:44→14:24)
[2021-03-04] MEDS ORDERED: PHENYLEPHRINE-NS 100 MCG/ML 10 ML SYRINGE ONE (12:25)
[2021-03-04] MEDS ORDERED: Lidocaine 1% PF 5 ML VIAL ONE (12:25)
[2021-03-04] MEDS ORDERED: Ondansetron PF 4 MG/2 ML Vial ONE (12:25)
[2021-03-04] MEDS ORDERED: PROPOFOL 200 MG/20 ML VIAL ONE (12:25)
[2021-03-04] MEDS ORDERED: ePHEDrine 50 MG/ML VIAL ONE (12:25)
[2021-03-04] MEDS ORDERED: Dexamethasone 20 MG/5 ML VIAL ONE (12:25)
[2021-03-04] MEDS ORDERED: Betamet Acet/Betamet Na Ph 30 MG/5 ML VIAL ONE (13:23)
[2021-03-04] MEDS ORDERED: Ketorolac Tromethamine 30 MG/ML VIAL ONE (14:18)
[2021-03-04] MEDS ORDERED: HYDROcodone/Acetaminophen 5/325 mg Tablet ONE (15:08)
== END 2021-03-04 16:10 | disposition home or self-care (01) ==
LOC: SDC 07:44
PROVIDERS: ATTEND Orthopaedic Surgery Hand Surgery
PROC: 0PBP0ZZ Excision of Right Metacarpal, Open Approach (ICD-10-PCS; principal; 2021-03-04)
PROC: 01N60ZZ Release Radial Nerve, Open Approach (ICD-10-PCS; principal; 2021-03-04)
DX: M25.731 Osteophyte, right wrist (principal); G56.31 Lesion of radial nerve, right upper limb; Z79.899 Other long term (current) drug therapy
CPT/HCPCS: 76000; 88305; 88311; J0690; J0702; J1100; J1885; J2405; J2704; J3010; J3490; S0020

== ENCOUNTER 2021-08-16 13:41 | Emergency (ER) | payer BC ==
[2021-08-16] MEDS ORDERED: Acetaminophen 500 MG TAB ONE (14:12)
[2021-08-16] MEDS ORDERED: Ondansetron PF 4 MG/2 ML Vial ONE (14:12)
[2021-08-16 14:26] LABS: #Lymphocytes 1.2 thou/uL (1.20-3.40); #Monocytes 0.4 thou/uL (0.11-0.59); #Neutrophils 2.5 thou/uL (1.40-6.50); %Basophils 0.2 % (0.0-1.0); %Eosinophils 0.6 % (0.0-10.0); %Lymphocytes 28.7 % (21.0-51.0); %Monocytes 9.9 % (0.0-10.0); %Neutrophils 60.5 % (42.0-75.0); Hemoglobin 15.3 g/dL (12.0-16.0); Mean Corpuscular HGB CONC 33.9 g/dL (32.0-36.0); Mean Corpuscular Hemoglobin 29.3 pg (27.0-31.0); Mean Corpuscular Volume 86.3 fL (78.0-98.0); Mean Platelet Volume 7.1 fL (7.4-10.4); Platelet Count 261 thou/uL (130-400); RBC Distribution Width 13.2 % (11.5-14.5); Red Blood Cell (RBC) Count 5.23 mill/uL (4.20-5.40); White Blood Cell (WBC) Count 4.1 thou/uL (4.8-10.8)
[2021-08-16 14:47] LABS: ALT (SGPT) 213 U/L (8-55); AST (SGOT) 119 U/L (5-34); Albumin 4.5 g/dL (3.4-4.8); Alkaline Phosphatase 472 U/L (40-110); Anion Gap 16 mmol/L (10-20); BUN (Urea Nitrogen) 15 mg/dL (9.8-20.1); Calc. Creatinine Clearance 0 mL/min (70-130); Calcium 9.8 mg/dL (7.8-10.44); Carbon Dioxide 19 mmol/L (23-31); Chloride 106 mmol/L (98-107); Globulin 3.1 g/dL (2.4-3.5); Glucose 122 mg/dL (80-115); Potassium 3.4 mmol/L (3.5-5.1); Protein, Total 7.6 g/dL (5.8-8.1); Sodium 138 mmol/L (136-145)
== END 2021-08-16 15:44 | disposition home or self-care (01) ==
LOC: ERS 13:41
DX: U07.1 COVID-19 (principal); J12.82 Pneumonia due to coronavirus disease 2019; N17.9 Acute kidney failure, unspecified; I10 Essential (primary) hypertension; E78.00 Pure hypercholesterolemia, unspecified; E78.5 Hyperlipidemia, unspecified; Z79.899 Other long term (current) drug therapy
CPT/HCPCS: 36415; 71045; 80053; 83605; 84484; 85025; 93005; 94760; 96374; J2405

== ENCOUNTER 2021-11-27 08:55 | Outpatient (CLI) | payer BC | END 2021-11-27 08:56 | disposition home or self-care (01) | LOC: BICMAMMO 08:55 | PROVIDERS: ATTEND Family Medicine | DX: Z13.6 Encounter for screening for cardiovascular disorders (principal); R92.8 Other abnormal and inconclusive findings on diagnostic imaging of breast; N64.9 Disorder of breast, unspecified | CPT/HCPCS: 76775; 77066; G0279 ==

== ENCOUNTER 2022-01-22 11:49 | Outpatient (CLI) | payer BC ==
[2022-01-22 13:21] LABS: #Eosinphils 0.2 10x3/uL (0.0-0.5); #Monocytes 0.4 10x3/uL (0.0-1.1); #Neutrophils 4.5 10x3/uL (1.5-8.4); %Basophils 0.6 % (0.0-2.0); %Eosinophils 2.2 % (0.0-6.0); %Lymphocytes 25.3 % (18.0-47.0); %Monocytes 5.3 % (0.0-10.0); %Neutrophils 66.3 % (40.0-75.0); Hemoglobin 13.7 g/dL (12.0-15.5); Mean Corpuscular HGB CONC 32.8 g/dL (32.0-36.0); Mean Corpuscular Hemoglobin 27.3 pg (27.0-33.0); Mean Corpuscular Volume 83.3 fl (81.6-98.3); Mean Platelet Volume 9.4 fl (7.4-10.4); Platelet Count 319 10x3/uL (150-450); RBC Distribution Width 14.1 % (11.5-14.5); Red Blood Cell (RBC) Count 5.02 10x6/uL (3.90-5.03); White Blood Cell (WBC) Count 6.8 10x3/uL (3.5-10.5)
[2022-01-22 13:39] LABS: Prothrombin Time 10.5 sec (9.5-12.1)
[2022-01-22 13:41] LABS: Anion Gap 16 mmol/L (10-20); BUN (Urea Nitrogen) 11 mg/dL (9.8-20.1); Calc. Creatinine Clearance 0 mL/min (70-130); Calcium 9.4 mg/dL (7.8-10.44); Carbon Dioxide 24 mmol/L (23-31); Chloride 106 mmol/L (98-107); Estimated GFR 66; Glucose 109 mg/dL (80-115); Potassium 4.5 mmol/L (3.5-5.1); Sodium 141 mmol/L (136-145)
== END 2022-01-22 11:50 | disposition home or self-care (01) ==
LOC: LABBT 11:49
PROVIDERS: ATTEND Orthopaedic Surgery
DX: Z01.818 Encounter for other preprocedural examination (principal); M17.12 Unilateral primary osteoarthritis, left knee; Z20.822 Contact with and (suspected) exposure to COVID-19
CPT/HCPCS: 80048; 85025; 85610; 87081; 87811; 93005; 93010

== ENCOUNTER 2022-01-27 07:52 | Observation (INO) | payer BC ==
[2022-01-23 17:00] VITALS: BMI 35.0
[2022-01-27] MEDS ORDERED: Vancomycin (BATCH) 1.5 GRAM/300 ML BAG ONE (08:41)
[2022-01-27] MEDS ORDERED: Sodium Chloride 0.9% 100 ML ONE ×2 (08:41→10:45)
[2022-01-27] MEDS ORDERED: Tranexamic Acid 1,000 MG/10 ML VIAL ONE (08:41)
[2022-01-27] MEDS ORDERED: Bupivacaine HCl 0.5%/Epinephrine 1:200,000/PF 30 ml Vial ONE (10:25)
[2022-01-27] MEDS ORDERED: Ondansetron PF 4 MG/2 ML Vial ONE (10:25)
[2022-01-27] MEDS ORDERED: Lidocaine 1% PF 5 ML VIAL ONE (10:25)
[2022-01-27] MEDS ORDERED: Glycopyrrolate 0.2 MG/ML 5 ML SYRINGE ONE (10:25)
[2022-01-27] MEDS ORDERED: PROPOFOL 200 MG/20 ML VIAL ONE (10:25)
[2022-01-27] MEDS ORDERED: Dexamethasone 20 MG/5 ML VIAL ONE (10:25)
[2022-01-27] MEDS ORDERED: Bupivacaine PF 0.5% 30 ML VIAL ONE (10:42)
[2022-01-27] MEDS ORDERED: Fentanyl 100 MCG/2 ML VIAL ONE ×2 (10:45→13:05)
[2022-01-27] MEDS ORDERED: Midazolam HCl 2 mg/2 ml Vial ONE (10:45)
[2022-01-27] MEDS ORDERED: CEFAZOLIN 2 GM VIAL ONE (10:45)
[2022-01-27] MEDS ORDERED: fentaNYL Citrate/PF 100 MCG/2 ML SYRINGE ONE (11:03)
[2022-01-27] MEDS ORDERED: Promethazine HCl 25 MG/ML VIAL IM PRN ×3 (11:25→12:54)
[2022-01-27] MEDS ORDERED: diphenhydrAMINE 25 MG CAP PO PRN (11:25)
[2022-01-27] MEDS ORDERED: Fentanyl 100 MCG/2 ML VIAL SLOW IVP PRN ×2 (11:25)
[2022-01-27] MEDS ORDERED: Zolpidem Tartrate 5 MG TAB PO PRN ×2 (11:25→12:15)
[2022-01-27] MEDS ORDERED: Acetaminophen 325 MG TAB PO PRN (11:25)
[2022-01-27] MEDS ORDERED: HYDROcodone/Acetaminophen 10/325 mg Tablet PO PRN ×3 (11:25→12:15)
[2022-01-27] MEDS ORDERED: Ondansetron PF 4 MG/2 ML Vial IVP PRN ×2 (11:25→12:15)
[2022-01-27] MEDS ORDERED: [UNRECOGNIZED DRUG - OTHER] PO PRN (11:26)
[2022-01-27] MEDS ORDERED: BUTALBITAL PO PRN (11:26)
[2022-01-27] MEDS ORDERED: CAFFEINE PO PRN (11:26)
[2022-01-27] MEDS ORDERED: ASPIRIN PO PRN (11:26)
[2022-01-27] MEDS ORDERED: ceFAZolin 2 GM/Dextrose 50 ML 2 GM in Premix Bag 1 BAG IVPB SCH (11:30)
[2022-01-27] MEDS ORDERED: [UNRECOGNIZED DRUG - OTHER] NASAL SCH (11:30)
[2022-01-27] MEDS ORDERED: Fentanyl 100 MCG/2 ML VIAL IV PRN (12:06)
[2022-01-27] MEDS ORDERED: Ropivacaine 0.2% 550 ML 550 ML NERVE BLCK SCH (12:15)
[2022-01-27] MEDS ORDERED: traMADol HCl 50 MG TAB PO PRN ×2 (12:15)
[2022-01-27] MEDS ORDERED: HYDROmorphone 2 MG/ML VIAL ONE (12:22)
[2022-01-27] MEDS ORDERED: [UNRECOGNIZED DRUG - OTHER] INH SCH (12:30)
[2022-01-27] MEDS ORDERED: Meperidine HCl/PF 25 MG/ML VIAL SLOW IVP PRN (12:54)
[2022-01-27] MEDS ORDERED: HYDROmorphone 2 MG/ML VIAL SLOW IVP PRN (12:54)
[2022-01-27] MEDS ORDERED: Ondansetron HCl/PF 4 MG/2 ML Vial IVP PRN (12:54)
[2022-01-27] MEDS ORDERED: Promethazine HCl 25 MG/ML VIAL IVPB PRN (12:54)
[2022-01-27] MEDS ORDERED: Ketorolac Tromethamine 30 MG/ML VIAL IVP PRN (12:54)
[2022-01-27] MEDS: Diazepam 2 MG TAB PO SCH ×3 (13:00→20:39)
[2022-01-27] MEDS ORDERED: HYDROmorphone 0.5 MG/0.5 ML SYRINGE ONE (13:05)
[2022-01-27] MEDS ORDERED: Ketorolac Tromethamine 30 MG/ML VIAL IVP SCH (14:00)
[2022-01-27] MEDS: Venlafaxine 75 MG TAB PO SCH ×2 (15:10→20:40)
[2022-01-27] MEDS: Gabapentin 300 MG CAP PO SCH (15:10)
[2022-01-27] MEDS: Sodium Chloride 0.9% 1,000 ML IV SCH ×2 (15:10→20:43)
[2022-01-27] MEDS: CEFAZOLIN 2 GM in Sodium Chloride 0.9% 100 ML IVPB SCH (17:31)
[2022-01-27] MEDS: Ketorolac Tromethamine 30 MG/ML VIAL IVP SCH (17:31)
[2022-01-27] MEDS: Ferrous Gluconate 324 MG TAB PO SCH (20:39)
[2022-01-27] MEDS: Aspirin 81 mg Enteric Coated Tablet PO SCH (20:39)
[2022-01-27] MEDS: Amlodipine 5 mg/Benazepril 10 mg CAP PO SCH (20:39)
[2022-01-27] MEDS: Senokot S 8.6-50 MG TAB PO SCH (20:42)
[2022-01-27] MEDS: Metoprolol Tartrate 50 MG TAB PO SCH (20:50)
[2022-01-27] MEDS ORDERED: Atorvastatin Calcium 40 MG TAB PO SCH (21:00)
[2022-01-27] MEDS ORDERED: Non-Formulary Item 1 EACH (Amlodipine Besylate/Benazepril [Amlodipine Besylate/Benazepril PO SCH (21:00)
[2022-01-27] MEDS ORDERED: Gabapentin 300 MG CAP PO SCH ×4 (21:00)
[2022-01-27] MEDS ORDERED: traZODone HCl 50 MG TAB PO SCH (21:00)
[2022-01-28] MEDS: Ketorolac Tromethamine 30 MG/ML VIAL IVP SCH ×2 (01:22→07:33)
[2022-01-28] MEDS: CEFAZOLIN 2 GM in Sodium Chloride 0.9% 100 ML IVPB SCH (02:34)
[2022-01-28] MEDS: HYDROcodone/Acetaminophen 10/325 mg Tablet PO PRN ×3 (02:45→12:40)
[2022-01-28] MEDS ORDERED: Multivitamin W/ Minerals 1 TAB PO SCH (09:00)
[2022-01-28] MEDS ORDERED: Bupropion 150 MG XL TAB PO SCH (09:00)
[2022-01-28] MEDS: Venlafaxine 75 MG TAB PO SCH ×2 (09:46→14:16)
[2022-01-28] MEDS: Senokot S 8.6-50 MG TAB PO SCH (09:47)
[2022-01-28] MEDS: Ferrous Gluconate 324 MG TAB PO SCH (09:48)
[2022-01-28] MEDS: Gabapentin 300 MG CAP PO SCH ×2 (09:49→14:15)
[2022-01-28] MEDS: Aspirin 81 mg Enteric Coated Tablet PO SCH (09:51)
[2022-01-28 09:52] LABS: Hemoglobin 10.4 g/dL (12.0-16.0); Mean Corpuscular Hemoglobin 28.7 pg (27.0-31.0); Mean Corpuscular Volume 86.8 fL (78.0-98.0); Mean Platelet Volume 7.4 fL (7.4-10.4); Platelet Count 229 thou/uL (130-400); RBC Distribution Width 13.5 % (11.5-14.5); Red Blood Cell (RBC) Count 3.64 mill/uL (4.20-5.40)
[2022-01-28] MEDS: Metoprolol Tartrate 50 MG TAB PO SCH (09:53)
[2022-01-28] MEDS: Sodium Chloride 0.9% 1,000 ML IV SCH (10:00)
[2022-01-28] MEDS: Amlodipine 5 mg/Benazepril 10 mg CAP PO SCH (10:04)
[2022-01-28] MEDS: Diazepam 2 MG TAB PO SCH ×2 (10:04→12:34)
[2022-01-28] MEDS ORDERED: Ketorolac Tromethamine 10 MG TAB PO SCH (12:00)
[2022-01-28 16:19] VITALS: BP 136/78; TEMP 97.5
== END 2022-01-28 15:55 | disposition home or self-care (01) ==
LOC: SDC 07:52 → SURG A 14:53
PROVIDERS: ADMIT Orthopaedic Surgery; ATTEND Orthopaedic Surgery
PROC: 0SRD0J9 Replacement of Left Knee Joint with Synthetic Substitute, Cemented, Open Approach (ICD-10-PCS; principal; 2022-01-27)
PROC: 8E0YXBZ Computer Assisted Procedure of Lower Extremity (ICD-10-PCS; 2022-01-27)
PROC: 3E0T3BZ Introduction of Anesthetic Agent into Peripheral Nerves and Plexi, Percutaneous Approach (ICD-10-PCS; 2022-01-27)
DX: M17.12 Unilateral primary osteoarthritis, left knee (principal); Z87.891 Personal history of nicotine dependence; Z79.899 Other long term (current) drug therapy; Z98.84 Bariatric surgery status
CPT/HCPCS: 36415; 85027; A4306; C1713; C1776; J0690; J1100; J1170; J1885; J2250; J2405; J2704; J2795; J3010; J3370; J3490; J7050; S0020

== ENCOUNTER 2022-03-17 12:34 | Emergency (ER) | payer BC, MEDICARE ==
[2022-03-17 13:24] LABS: Hemoglobin 13.5 g/dL (12.0-16.0); Mean Corpuscular HGB CONC 32.8 g/dL (32.0-36.0); Mean Corpuscular Hemoglobin 28.1 pg (27.0-31.0); Mean Corpuscular Volume 85.7 fL (78.0-98.0); RBC Distribution Width 14.7 % (11.5-14.5); Red Blood Cell (RBC) Count 4.81 mill/uL (4.20-5.40); White Blood Cell (WBC) Count 6.9 thou/uL (4.8-10.8)
[2022-03-17 13:40] LABS: Band 5 % (5-11); Lymphocytes 18 % (21-51); MDiff Complete? YES; Monocytes 1 % (0-10); Neutrophil 74 % (42-75); Platelet Clumps MODERATE; Platelet Morphology Comment PLT clumps seen-ADEQ; RBC Morphology Normal; Reactive Lymphocytes 2 % (0-10)
[2022-03-17 13:52] LABS: ALT (SGPT) 22 U/L (8-55); AST (SGOT) 22 U/L (5-34); Albumin 4.4 g/dL (3.4-4.8); Alkaline Phosphatase 152 U/L (40-110); Anion Gap 15 mmol/L (10-20); BUN (Urea Nitrogen) 8 mg/dL (9.8-20.1); Bilirubin, Total 0.7 mg/dL (0.2-1.2); Calc. Creatinine Clearance 0 mL/min (70-130); Calcium 9.7 mg/dL (7.8-10.44); Carbon Dioxide 19 mmol/L (23-31); Chloride 108 mmol/L (98-107); Estimated GFR 56; Globulin 3.2 g/dL (2.4-3.5); Glucose 116 mg/dL (80-115); Lipase 13 U/L (8-78); Potassium 4.1 mmol/L (3.5-5.1); Protein, Total 7.6 g/dL (5.8-8.1); Sodium 138 mmol/L (136-145)
[2022-03-17 15:52] LABS: SARS-CoV-2 NAA Rapid Test Not Detected (NotDetected)
== END 2022-03-17 15:57 | disposition home or self-care (01) ==
LOC: ERS 12:34
DX: J20.9 Acute bronchitis, unspecified (principal); I10 Essential (primary) hypertension; E78.00 Pure hypercholesterolemia, unspecified; F17.210 Nicotine dependence, cigarettes, uncomplicated; Z20.822 Contact with and (suspected) exposure to COVID-19; Z79.899 Other long term (current) drug therapy
CPT/HCPCS: 36415; 71045; 80053; 83690; 83880; 84484; 85025; 87040; 93005

== ENCOUNTER 2023-03-18 09:57 | Outpatient (CLI) | payer MEDICARE, BC ==
[2023-03-18 12:10] LABS: Anion Gap 13 mmol/L (10-20); BUN (Urea Nitrogen) 16 mg/dL (9.8-20.1); Calc. Creatinine Clearance 0 mL/min (70-130); Calcium 9.4 mg/dL (7.8-10.44); Carbon Dioxide 25 mmol/L (23-31); Chloride 106 mmol/L (98-107); Estimated GFR 61; Glucose 81 mg/dL (80-115); Potassium 4.2 mmol/L (3.5-5.1); Sodium 140 mmol/L (136-145)
[2023-03-18 12:11] LABS: #Eosinphils 0.1 10x3/uL (0.0-0.5); #Monocytes 0.4 10x3/uL (0.0-1.1); #Neutrophils 3.5 10x3/uL (1.5-8.4); %Basophils 0.5 % (0.0-2.0); %Eosinophils 2.5 % (0.0-6.0); %Monocytes 7.8 % (0.0-10.0); %Neutrophils 63.8 % (40.0-75.0); Hematocrit 40.1 % (34.9-44.5); Hemoglobin 13.5 g/dL (12.0-15.5); Mean Corpuscular HGB CONC 33.7 g/dL (32.0-36.0); Mean Corpuscular Hemoglobin 29.9 pg (27.0-33.0); Mean Corpuscular Volume 88.7 fl (81.6-98.3); Mean Platelet Volume 9.9 fl (7.4-10.4); Platelet Count 224 10x3/uL (150-450); RBC Distribution Width 12.5 % (11.5-14.5); Red Blood Cell (RBC) Count 4.52 10x6/uL (3.90-5.03); White Blood Cell (WBC) Count 5.5 10x3/uL (3.5-10.5)
[2023-03-18 12:27] LABS: INR-International Normal Ratio 0.9; Prothrombin Time 9.9 sec (9.5-12.1)
== END 2023-03-18 09:58 | disposition home or self-care (01) ==
LOC: LABBT 09:57
PROVIDERS: ATTEND Orthopaedic Surgery
DX: Z01.818 Encounter for other preprocedural examination (principal); M17.11 Unilateral primary osteoarthritis, right knee
CPT/HCPCS: 80048; 85025; 85610; 87081; 93005; 93010

== ENCOUNTER 2023-04-21 12:55 | Outpatient (CLI) | payer BC, MEDICARE | END 2023-04-21 12:56 | disposition home or self-care (01) | LOC: ULT 12:55 | PROVIDERS: ATTEND Orthopaedic Surgery | DX: I82.403 Acute embolism and thrombosis of unspecified deep veins of lower extremity, bilateral (principal) | CPT/HCPCS: 93970 ==

== ENCOUNTER 2024-04-04 12:22 | Outpatient (CLI) | payer BC, MEDICARE | END 2024-04-04 12:23 | disposition home or self-care (01) | LOC: BICCT 12:22 | DX: Z12.2 Encounter for screening for malignant neoplasm of respiratory organs (principal); Z78.0 Asymptomatic menopausal state; F17.210 Nicotine dependence, cigarettes, uncomplicated; M85.89 Other specified disorders of bone density and structure, multiple sites | CPT/HCPCS: 71271; 77080 ==

== ENCOUNTER 2024-08-19 12:07 | Observation (INO) | payer BC, MEDICARE ==
[~2024-08-19 12:07] MED LIST changes: -Iopamidol-370 76% 500 ML 1 ML ONE; +Iopamidol-370 76% 500 ML MDV (1 ML CHARGE) ONE
[2024-08-19 12:47] LABS: #Basophils 0.04 10x3/uL (0.0-0.2); #Eosinophils Less than 0.03 10x3/uL (0.0-0.7); %Basophils 0.3 % (0.0-1.0); %Eosinophils 0.1 % (0.0-10.0); %Lymphocytes 9.9 % (21.0-51.0); %Monocytes 3.9 % (0.0-10.0); %Neutrophils 85.5 % (42.0-75.0); Hematocrit 45.9 % (36.0-47.0); Hemoglobin 15.9 g/dL (12.0-16.0); Mean Corpuscular HGB CONC 34.6 g/dL (32.0-36.0); Mean Corpuscular Hemoglobin 29.1 pg (27.0-31.0); Mean Corpuscular Volume 83.9 fL (78.0-98.0); Mean Platelet Volume 8.9 fL (7.4-10.4); Platelet Count 317 10x3/uL (130-400); RBC Distribution Width 12.6 % (11.5-14.5); Red Blood Cell (RBC) Count 5.47 mill/uL (4.20-5.40)
[2024-08-19 12:56] LABS: Bacteria/HPF 4+ HPF (None Seen); Bilirubin Negative (Negative); Blood, Urine Negative (Negative); CAUTI Indications for Culture Pelvic or flank pain; Glucose, Urine (Dipstick) Normal (Negative); Ketone, Urine Negative (Negative); Leukocyte Negative Leu/uL (Negative); Nitrite Negative (Negative); Protein, Urine (Dipstick) 70 mg/dL (Neg-Trace); RBC/HPF 0-3 HPF (0-3); Specific Gravity, Urine 1.009 (1.002-1.036); Urobilinogen Normal mg/dL (Less than 2); WBC/HPF 0-3 HPF (0-3)
[2024-08-19 12:57] LABS: Clarity Hazy (Clear)
[2024-08-19 12:58] LABS: Urine Culture Reflex No No
[2024-08-19 13:03] LABS: ALT (SGPT) 13 U/L (Less than 34); AST (SGOT) 24 U/L (11-34); Albumin 4.7 g/dL (3.1-4.5); Alkaline Phosphatase 174 U/L (40-110); Anion Gap 17 mmol/L (10-20); BUN (Urea Nitrogen) 10 mg/dL (9.8-20.1); Bilirubin, Total 0.6 mg/dL (0.3-1.2); Calc. Creatinine Clearance 0 mL/min (70-130); Calcium 11.1 mg/dL (7.8-10.44); Carbon Dioxide 23 mmol/L (23-31); Chloride 103 mmol/L (98-107); Estimated GFR 47; Globulin 4.2 g/dL (2.4-3.5); Glucose 141 mg/dL (80-115); Lipase 16 U/L (8-78); Potassium 3.4 mmol/L (3.5-5.1); Protein, Total 8.9 g/dL (5.8-8.1); Sodium 140 mmol/L (136-145)
[2024-08-19 13:07] LABS: Troponin I Less than 0.010 ng/mL (< 0.028)
[2024-08-19] MEDS ORDERED: Morphine 4 MG/ML VIAL ONE (13:11)
[2024-08-19] MEDS ORDERED: Ondansetron PF 4 MG/2 ML Vial ONE ×3 (13:11→18:23)
[2024-08-19] MEDS ORDERED: Glucagon 1 MG/ML KIT IM PRN (15:52)
[2024-08-19] MEDS ORDERED: Ondansetron PF 4 MG/2 ML Vial IVP PRN (15:52)
[2024-08-19] MEDS ORDERED: Ipratropium/Albuterol 3 ML NEB NEB PRN (15:52)
[2024-08-19] MEDS ORDERED: hydrALAZINE 20 MG/ML VIAL SLOW IVP PRN (15:52)
[2024-08-19] MEDS ORDERED: Dextrose 5% in Water 1,000 ML IV PRN (15:52)
[2024-08-19] MEDS ORDERED: Dextrose 50% Abboject 50 ML SYRINGE SLOW IVP PRN (15:52)
[2024-08-19] MEDS ORDERED: traMADol HCl 50 MG TAB PO PRN (15:52)
[2024-08-19] MEDS ORDERED: Sodium Chloride 0.9% 100 ML ONE (15:58)
[2024-08-19] MEDS ORDERED: Morphine 2 MG/ML VIAL ONE (15:58)
[2024-08-19] MEDS ORDERED: Piperacillin/Tazobactam 3.375 GM VIAL ONE (15:58)
[2024-08-19] MEDS ORDERED: Bupivacaine 0.25% HCL 30 ML VIAL ONE (16:13)
[2024-08-19] MEDS ORDERED: EPINEPHrine 1 MG/ML VIAL ONE (16:13)
[2024-08-19] MEDS ORDERED: cefOXitin 2 GM VIAL ONE (16:13)
[2024-08-19] MEDS ORDERED: fentaNYL 50 mcg/mL 1 mL Vial ONE ×3 (16:51→19:27)
[2024-08-19] MEDS ORDERED: PROPOFOL 20 ML ONE ×2 (16:51→18:32)
[2024-08-19] MEDS ORDERED: Rocuronium Bromide 10 MG/ML (10ML VIAL) ONE (16:52)
[2024-08-19] MEDS ORDERED: SUCCINYLCHOLINE/SOD CL,ISO/PF 200 MG/10 ML SYRINGE FS ONE (16:52)
[2024-08-19 17:29] LABS: Bilirubin Negative (Negative); Blood, Urine Trace (Negative); Clarity Clear (Clear); Glucose, Urine (Dipstick) Normal (Negative); Ketone, Urine Negative (Negative); Leukocyte Negative Leu/uL (Negative); Nitrite Negative (Negative); Protein, Urine (Dipstick) 70 mg/dL (Neg-Trace); Specific Gravity, Urine 1.009 (1.002-1.036); Urobilinogen Normal mg/dL (Less than 2); WBC/HPF 0-3 HPF (0-3); pH, Urine 6.5 (5.0-9.0)
[2024-08-19 17:30] LABS: Bacteria/HPF 1+ HPF (None Seen)
[2024-08-19] MEDS ORDERED: PHENYLEPHRINE-NS 100 MCG/ML 10 ML SYRINGE ONE (18:15)
[2024-08-19] MEDS ORDERED: Dexamethasone 4 mg/ml Vial ONE (18:23)
[2024-08-19] MEDS ORDERED: ePHEDrine Sulfate 50 MG/10 ML VIAL ONE (18:25)
[2024-08-19] MEDS ORDERED: SUGAMMADEX SODIUM 200 MG/2 ML VIAL ONE (18:33)
[2024-08-19] MEDS ORDERED: fentaNYL PF 100 MCG/2 ML SYRINGE ONE (18:58)
[2024-08-19] MEDS ORDERED: Nystatin Powder 15 GM BOT TOP PRN (19:14)
[2024-08-19] MEDS: Lactated Ringer's 1,000 ML IV SCH (21:11)
[2024-08-19] MEDS: Famotidine/PF 20 mg/2ml Vial SLOW IVP SCH (21:12)
[2024-08-19] MEDS: Famotidine 20 MG TAB PO SCH (21:12)
[2024-08-19 21:14] VITALS: BMI 31.4
[2024-08-19] MEDS: Morphine 2 MG/ML VIAL SLOW IVP PRN (23:00)
[2024-08-19] MEDS: Acetaminophen 325 MG TAB PO PRN (23:06)
[2024-08-20 05:46] LABS: #Basophils Less than 0.03 10x3/uL (0.0-0.2); #Eosinophils Less than 0.03 10x3/uL (0.0-0.7); %Basophils 0.1 % (0.0-1.0); %Lymphocytes 7.2 % (21.0-51.0); %Monocytes 4.6 % (0.0-10.0); %Neutrophils 87.9 % (42.0-75.0); Hematocrit 33.5 % (36.0-47.0); Hemoglobin 11.3 g/dL (12.0-16.0); Mean Corpuscular HGB CONC 33.7 g/dL (32.0-36.0); Mean Corpuscular Hemoglobin 28.7 pg (27.0-31.0); Mean Platelet Volume 9.7 fL (7.4-10.4); Platelet Count 173 10x3/uL (130-400); RBC Distribution Width 12.8 % (11.5-14.5); Red Blood Cell (RBC) Count 3.94 mill/uL (4.20-5.40)
[2024-08-20 06:53] LABS: Anion Gap 12 mmol/L (10-20); BUN (Urea Nitrogen) 13 mg/dL (9.8-20.1); Calc. Creatinine Clearance 61 mL/min (70-130); Calcium 8.9 mg/dL (7.8-10.44); Carbon Dioxide 23 mmol/L (23-31); Chloride 104 mmol/L (98-107); Estimated GFR 48; Glucose 125 mg/dL (80-115); Potassium 3.8 mmol/L (3.5-5.1); Sodium 135 mmol/L (136-145)
[2024-08-20 08:46] VITALS: BP 150/76; TEMP 98
[2024-08-20] MEDS: HYDROcodone/Acetaminophen 5/325 mg Tablet PO PRN (09:00)
== END 2024-08-20 13:03 | disposition home or self-care (01) ==
LOC: ERS 12:07 → SDC 16:27 → SURG A 20:14
PROVIDERS: ADMIT Surgery; ATTEND Surgery
DX: R10.9 Unspecified abdominal pain (principal); R11.2 Nausea with vomiting, unspecified; K35.80 Unspecified acute appendicitis; I25.10 Atherosclerotic heart disease of native coronary artery without angina pectoris; M85.9 Disorder of bone density and structure, unspecified
CPT/HCPCS: 36415; 74177; 80048; 80053; 81001; 83690; 84484; 85025; 87086; 93005; 96361; 96374; 96375; 96376; A4314; A4649; G0378; J0171; J0665; J0694; J1100; J2270; J2272; J2405; J2543; J2704; J3010; J7120

== ENCOUNTER 2025-02-09 22:09 | Emergency (ER) | payer BC, MEDICARE ==
[2025-02-09 23:16] LABS: #Basophils Less than 0.03 10x3/uL (0.0-0.2); #Eosinophils 0.15 10x3/uL (0.0-0.7); #Monocytes 0.28 10x3/uL (0.11-0.59); #Neutrophils 4.06 10x3/uL (1.40-6.50); %Basophils 0.3 % (0.0-1.0); %Eosinophils 2.6 % (0.0-10.0); %Lymphocytes 22.7 % (21.0-51.0); %Monocytes 4.8 % (0.0-10.0); %Neutrophils 69.3 % (42.0-75.0); ALT (SGPT) 8 U/L (Less than 34); AST (SGOT) 12 U/L (11-34); Albumin 3.6 g/dL (3.1-4.5); Alkaline Phosphatase 192 U/L (40-110); Anion Gap 12 mmol/L (10-20); BUN (Urea Nitrogen) 13 mg/dL (9.8-20.1); Bilirubin, Total 0.4 mg/dL (0.3-1.2); Calc. Creatinine Clearance 0 mL/min (70-130); Calcium 8.5 mg/dL (7.8-10.44); Carbon Dioxide 22 mmol/L (23-31); Chloride 102 mmol/L (98-107); Globulin 2.7 g/dL (2.4-3.5); Glucose 168 mg/dL (80-115); Hematocrit 36.8 % (36.0-47.0); Hemoglobin 12.2 g/dL (12.0-16.0); Mean Corpuscular Hemoglobin 28.0 pg (27.0-31.0); Mean Corpuscular Volume 84.4 fL (78.0-98.0); Platelet Count 199 10x3/uL (130-400); Potassium 3.3 mmol/L (3.5-5.1); Red Blood Cell (RBC) Count 4.36 mill/uL (4.20-5.40); Sodium 133 mmol/L (136-145); White Blood Cell (WBC) Count 5.86 10x3/uL (4.8-10.8)
== END 2025-02-10 02:30 | disposition home or self-care (01) ==
LOC: ERS 22:09
DX: S30.0XXA Contusion of lower back and pelvis, initial encounter (principal); R91.1 Solitary pulmonary nodule; R47.81 Slurred speech; R29.701 NIHSS score 1; I10 Essential (primary) hypertension; E78.00 Pure hypercholesterolemia, unspecified; F17.210 Nicotine dependence, cigarettes, uncomplicated; Z91.81 History of falling; Z79.899 Other long term (current) drug therapy; W19.XXXA Unspecified fall, initial encounter
CPT/HCPCS: 70450; 71260; 72125; 74177; 80053; 83880; 84484; 85025; 93005